=== PATIENT | male | born 1955 | race Caucasian/White ===

== ENCOUNTER 2023-03-23 11:36 | Inpatient (IN) | payer MEDICARE ==
[2023-03-23] MEDS ORDERED: Pantoprazole 40 MG VIAL ONE (12:08)
[2023-03-23 12:12] LABS: #Monocytes 0.7 thou/uL (0.11-0.59); #Neutrophils 20.9 thou/uL (1.40-6.50); %Basophils 0.1 % (0.0-1.0); %Lymphocytes 8.7 % (21.0-51.0); %Monocytes 2.9 % (0.0-10.0); %Neutrophils 87.6 % (42.0-75.0); Hemoglobin 6.3 g/dL (14.0-18.0); Mean Corpuscular HGB CONC 33.2 g/dL (32.0-36.0); Mean Corpuscular Hemoglobin 32.3 pg (27.0-31.0); Mean Corpuscular Volume 97.4 fl (78.0-98.0); Mean Platelet Volume 11.3 fL (7.4-10.4); Platelet Count 268 10x3/uL (130-400); RBC Distribution Width 13.8 % (11.5-14.5); Red Blood Cell (RBC) Count 1.95 mill/uL (4.70-6.10); White Blood Cell (WBC) Count 23.8 10x3/uL (4.8-10.8)
[2023-03-23] MEDS ORDERED: Pantoprazole 80 MG, Admixture Fee 1 EACH in Sodium Chloride 0.9% 100 ML IVPB SCH ×2 (12:30→14:15)
[2023-03-23 12:34] LABS: ALT (SGPT) 19 U/L (8-55); AST (SGOT) 20 U/L (5-34); Albumin 3.6 g/dL (3.4-4.8); Alkaline Phosphatase 39 U/L (40-110); Anion Gap 13 mmol/L (10-20); BUN (Urea Nitrogen) 58 mg/dL (8.4-25.7); Bilirubin, Total 0.3 mg/dL (0.2-1.2); Calc. Creatinine Clearance 0 mL/min (70-130); Calcium 7.9 mg/dL (7.8-10.44); Carbon Dioxide 17 mmol/L (23-31); Chloride 111 mmol/L (98-107); Estimated GFR 82; Glucose 126 mg/dL (80-115); Lipase 43 U/L (8-78); Potassium 4.7 mmol/L (3.5-5.1); Protein, Total 5.6 g/dL (5.8-8.1); Sodium 136 mmol/L (136-145)
[2023-03-23 12:37] LABS: Troponin I 0.027 ng/mL (< 0.028)
[2023-03-23] MEDS ORDERED: Iopamidol-370 76% 500 ML MDV (1 ML CHARGE) ONE (13:22)
[2023-03-23] MEDS ORDERED: Acetaminophen 500 MG TAB PO PRN (13:41)
[2023-03-23] MEDS ORDERED: Pantoprazole 80 MG in Sodium Chloride 0.9% 100 ML IVPB SCH (13:43)
[2023-03-23] MEDS ORDERED: Metoclopramide HCl 10 MG (2 mL) VIAL IVP PRN (13:57)
[2023-03-23] MEDS ORDERED: Sodium Chloride 0.9% 100 ML ONE (14:08)
[2023-03-23] MEDS ORDERED: cefTRIAXone (ROCEPHIN) 2 GM VIAL ONE (14:08)
[2023-03-23 15:10] LABS: Bacteria/HPF None Seen HPF (None Seen); Bilirubin Negative (Negative); Blood, Urine Negative (Negative); Clarity Clear (Clear); Glucose, Urine (Dipstick) Normal (Negative); Ketone, Urine Negative (Negative); Leukocyte Negative Leu/uL (Negative); Nitrite Negative (Negative); Protein, Urine (Dipstick) Negative (Neg-Trace); RBC/HPF 0-3 HPF (0-3); Specific Gravity, Urine 1.038 (1.002-1.036); Squamous Epithelial None Seen HPF (0-3); Urobilinogen Normal mg/dL (Less than 2); WBC/HPF 0-3 HPF (0-3)
[2023-03-23 17:27] VITALS: BMI 23.6
[2023-03-23 20:51] LABS: Hematocrit 20.1 % (42.0-52.0); Hemoglobin 6.7 g/dL (14.0-18.0)
[2023-03-24 04:59] LABS: #Basophils 0.1 thou/uL (0.0-0.2); #Eosinphils 0.1 thou/uL (0.0-0.7); #Monocytes 1.3 thou/uL (0.11-0.59); #Neutrophils 8.3 thou/uL (1.40-6.50); %Basophils 0.4 % (0.0-1.0); %Eosinophils 0.5 % (0.0-10.0); %Lymphocytes 27.5 % (21.0-51.0); %Monocytes 9.5 % (0.0-10.0); %Neutrophils 61.7 % (42.0-75.0); Hematocrit 22.6 % (42.0-52.0); Hemoglobin 7.6 g/dL (14.0-18.0); Mean Corpuscular HGB CONC 33.6 g/dL (32.0-36.0); Mean Corpuscular Hemoglobin 32.2 pg (27.0-31.0); Mean Corpuscular Volume 95.8 fl (78.0-98.0); Mean Platelet Volume 11.6 fL (7.4-10.4); Platelet Count 185 10x3/uL (130-400); RBC Distribution Width 14.6 % (11.5-14.5); Red Blood Cell (RBC) Count 2.36 mill/uL (4.70-6.10); White Blood Cell (WBC) Count 13.4 10x3/uL (4.8-10.8)
[2023-03-24 05:23] LABS: Anion Gap 10 mmol/L (10-20); BUN (Urea Nitrogen) 33 mg/dL (8.4-25.7); Calc. Creatinine Clearance 87 mL/min (70-130); Calcium 7.7 mg/dL (7.8-10.44); Carbon Dioxide 21 mmol/L (23-31); Chloride 111 mmol/L (98-107); Estimated GFR 92; Glucose 99 mg/dL (80-115); Sodium 138 mmol/L (136-145)
[2023-03-24] MEDS ORDERED: ePHEDrine Sulfate 50 MG/10 ML VIAL ONE (08:27)
[2023-03-24] MEDS ORDERED: Lidocaine 1% PF 5 ML VIAL ONE (08:27)
[2023-03-24] MEDS ORDERED: fentaNYL 50 mcg/mL 1 mL Vial ONE (08:27)
[2023-03-24] MEDS ORDERED: PHENYLEPHRINE-NS 100 MCG/ML 10 ML SYRINGE ONE (08:27)
[2023-03-24] MEDS ORDERED: PROPOFOL 20 ML ONE ×2 (08:27→08:48)
[2023-03-24 09:45] VITALS: TEMP 98.1
[2023-03-24 11:14] VITALS: BP 121/87
[2023-03-24] MEDS ORDERED: cefTRIAXone\\ROCEPHIN 2 GM in Sodium Chloride 0.9% 100 ML IVPB SCH (14:00)
[2023-03-24] MEDS ORDERED: Cyanocobalamin (Vitamin B-12) 1,000 MCG TAB PO SCH (21:00)
[2023-03-24] MEDS ORDERED: Folic Acid 1 MG TAB PO SCH (21:00)
== END 2023-03-24 14:44 | disposition home or self-care (01) | DRG 811 ==
LOC: ERS 11:36 → 2NO 13:17
PROVIDERS: ADMIT Family Medicine; ATTEND Internal Medicine
PROC: 30233N1 Transfusion of Nonautologous Red Blood Cells into Peripheral Vein, Percutaneous Approach (ICD-10-PCS; principal; 2023-03-23)
PROC: 0DB68ZX Excision of Stomach, Via Natural or Artificial Opening Endoscopic, Diagnostic (ICD-10-PCS; 2023-03-24)
DX: D62 Acute posthemorrhagic anemia (principal); K25.4 Chronic or unspecified gastric ulcer with hemorrhage; E87.20 Acidosis, unspecified; E78.5 Hyperlipidemia, unspecified; D72.829 Elevated white blood cell count, unspecified; K44.9 Diaphragmatic hernia without obstruction or gangrene; K26.9 Duodenal ulcer, unspecified as acute or chronic, without hemorrhage or perforation; Z90.49 Acquired absence of other specified parts of digestive tract; Z87.891 Personal history of nicotine dependence; Z98.890 Other specified postprocedural states
CPT/HCPCS: 36415; 36430; 71045; 74177; 80048; 80053; 81001; 82274; 83605; 83690; 84484; 85025; 86850; 86900; 86901; 87040; 87086; 88305; 93005; 96365; 96368; 96376; C9113; J0696; J2704; J3010; J3490; P9016; Q9967